=== PATIENT | female | born 1960 | race Hispanic/Latino ===

== ENCOUNTER 2017-06-15 12:59 | Emergency (ER) | payer MEDICAID, OTHER ==
[2017-06-15 12:59] VITALS: BMI 24.1
[2017-06-15 13:21] VITALS: RESP 16; TEMP 97.5
--- NOTE | 2017-06-15 14:41 | ED PDOC ---
Arrival/HPI - General Chief Complaint: Headache Time Seen by Provider: 06/15/17 13:33 Historian: Patient - History of Present Illness Narrative History of Present Illness (Text): 06/15/17 Buffy Magallanes is a 57 year old female, who presents to the emergency department complaining of tremors x years. Patient reports it initially began on bilateral hands and now it's affecting bilateral legs. Patient also complains of forhead pressure x3 weeks which is constant and non radiating. She became concerned that these symptoms could be related. Patient denies neck stiffness, vision changes, nausea, vomiting, rhinorrhea, weakness, numbness, or gait imbalance. She also states it does not feel like previous sinus infection. Time/Duration: < month (3 weeks) Symptom Onset: Gradual Symptom Course: Unchanged Quality: Pressure Past Medical History - Provider Review Nursing Documentation Reviewed: Yes - Psychiatric Hx Depression: No Hx Emotional Abuse: No Hx Physical Abuse: No Hx Substance Use: No - Suicidal Assessment Feels Threatened In Home Enviroment: No Family/Social History - Physician Review Nursing Documentation Reviewed: Yes Family/Social History: Unknown Family HX Smoking Status: Never Smoked Hx Alcohol Use: Yes ("2 glasses of vodka to sleep") Frequency of alcohol use: Daily Hx Substance Use: No Hx Substance Use Treatment: No Allergies/Home Meds Allergies/Adverse Reactions: Allergies No Known Allergies Allergy (Verified 06/15/17 13:21) Home Medications: Home Meds Medication Instructions Recorded Confirmed No Known Home Med 02/09/12 06/15/17 Review of Systems - Review of Systems Constitutional: Other (tremors). absent: Fevers Respiratory: absent: SOB Gastrointestinal: absent: Abdominal Pain Neurological: Headache Physical Exam - Physical Exam Narrative Physical Exam (Text): 06/15/17 Constitutional: No acute distress. Head: Normocephalic. Atraumatic. No sign of tenderness. No visible swelling. Eyes: PERRL. ENT: Moist mucous membranes. Neck: Supple. Cardiovascular: Regular rate. Chest: No tenderness. Respiratory: Clear to auscultation bilaterally. GI: Soft. Nontender. Nondistended. Back: No CVA tenderness. Musculoskeletal: No tenderness or swelling of extremities. Skin: No rash. Neurologic: Alert, no focal deficit. Neuro visual powell full. Vital Signs Reviewed: Yes Vital Signs Temp Pulse Resp BP Pulse Ox 06/15/17 13:17 97.5 F L 74 16 147/95 H 97 Temperature: Afebrile Blood Pressure: Hypertensive Pulse: Regular Respiratory Rate: Normal Appearance: Positive for: Well-Appearing, Non-Toxic, Comfortable Pain Distress: None Mental Status: Positive for: Alert and Oriented X 3 Medical Decision Making ED Course and Treatment: 06/15/17 Impression: 57 year old female with no head tenderness or no visible swelling. Neuro visual powell full. Differential Diagnosis included but are not limited to: Plan: -- CT head without contrast -- Reassess and disposition Progress Notes: Patient was informed about the limitations of a CT head scan. She was advised to follow up with neurologist if tremors continue and also for a possible MRI. - RAD Interpretation Radiology Orders: 06/15/17 13:42 HEAD W/O CONTRAST [CT] [employer] Engineer: Radiologist - Scribe Statement The provider has reviewed the documentation as recorded by the Scribe Shy Soriano Provider Scribe Attestation: All medical record entries made by the Scribe were at my direction and personally dictated by me. I have reviewed the chart and agree that the record accurately reflects my personal performance of the history, physical exam, medical decision making, and the department course for this patient. I have also personally directed, reviewed, and agree with the discharge instructions and disposition. Disposition/Present on Arrival - Present on Arrival Any Indicators Present on Arrival: No History of DVT/PE: No History of Uncontrolled Diabetes: No Urinary Catheter: No History of Decub. Ulcer: No History Surgical Site Infection Following: None - Disposition Have Diagnosis and Disposition been Completed?: Yes Diagnosis: Tremor Disposition: HOME/ ROUTINE Disposition Time: 15:28 Patient Plan: Discharge Condition: STABLE Discharge Instructions (ExitCare): Tremors (ED) Referrals: [facility] [place] [facility] [place] - Follow up with primary Forms: [employer] ([place])
--- NOTE | 2017-06-15 14:49 | CT ---
PROCEDURE: CT HEAD WITHOUT CONTRAST. HISTORY: head pressure, extremity tremors COMPARISON: None available. TECHNIQUE: Axial computed tomography images were obtained through the head/brain without intravenous contrast. Radiation dose: Total exam DLP = 714 mGy-cm. This CT exam was performed using one or more of the following dose reduction techniques: Automated exposure control, adjustment of the mA and/or kV according to patient size, and/or use of iterative reconstruction technique. FINDINGS: HEMORRHAGE: No intracranial hemorrhage. BRAIN: No mass effect or edema. No atrophy or chronic microvascular ischemic changes. VENTRICLES: Unremarkable. No hydrocephalus. CALVARIUM: Unremarkable. PARANASAL SINUSES: Unremarkable as visualized. No significant inflammatory changes. MASTOID AIR CELLS: Unremarkable as visualized. No inflammatory changes. OTHER FINDINGS: None. IMPRESSION: Normal CT of the Head.
[2017-06-15 15:43] VITALS: BP 135/89; PULSE 66; O2SAT 98
== END 2017-06-15 15:43 | disposition home or self-care (01) ==
LOC: ED 12:59
DX: R25.1 Tremor, unspecified (principal)